=== PATIENT | male | born 1955 | race Caucasian/White ===

== ENCOUNTER 2019-07-14 17:16 | Observation (INO) | payer SELFPAY ==
--- NOTE | 2019-07-14 17:33 | ER Document Report ---
ED Medical Screen (RME) - General Stated Complaint: ABNORMAL LABS Time Seen by Provider: 07/14/19 17:24 Primary Care Provider: SENA GAMBOA MD [Primary Care Provider] - Follow up as needed Information source: Patient Notes: Patient presents after having outpatient lab work performed that found a hemoglobin of 4.9. Patient states that he does have dizziness and does have shortness of breath that is worse with exertion. Patient denies any abnormal bleeding or bruising. Patient does report black stools but attributes this to his vegetable intake. Patient reports a history of diabetes. I have greeted and performed a rapid initial assessment of this patient. A comprehensive ED assessment and evaluation of the patient, analysis of test results and completion of the medical decision making process will be conducted by additional ED providers. Physical Exam - Vital signs Vitals: Temp Pulse Resp BP Pulse Ox 98.9 F 81 16 160/57 H 100 07/14/19 17:20 07/14/19 17:20 07/14/19 17:20 07/14/19 17:20 07/14/19 17:20 - General General appearance: Appears well, Alert Notes: Pale - Cardiovascular Rhythm: Regular Heart sounds: S1 appreciated, S2 appreciated Course - Vital Signs Vital signs: Temp Pulse Resp BP Pulse Ox 98.9 F 81 16 160/57 H 100 07/14/19 17:20 07/14/19 17:20 07/14/19 17:20 07/14/19 17:20 07/14/19 17:20 Doctor's Discharge - Discharge Referrals: SENA GAMBOA MD [Primary Care Provider] - Follow up as needed
--- NOTE | 2019-07-14 18:15 | RADIOLOGY REPORT (SQ) ---
EXAM DESCRIPTION: CHEST SINGLE VIEW IMAGES COMPLETED DATE/TIME: 07/14/2019 6:02 pm REASON FOR STUDY: dizziness COMPARISON: None. EXAM PARAMETERS: NUMBER OF VIEWS: One view. TECHNIQUE: Single frontal radiographic view of the chest acquired. RADIATION DOSE: NA LIMITATIONS: None. FINDINGS: LUNGS AND PLEURA: Bibasilar minimal scar or atelectasis. No acute pulmonary consolidatio n. No pneumothorax or pleural effusion. MEDIASTINUM AND HILAR STRUCTURES: No masses. Contour normal. HEART AND VASCULAR STRUCTURES: Heart normal in size. Normal vasculature. BONES: No acute findings. HARDWARE: None in the chest. OTHER: No other significant finding. IMPRESSION: 1. NO ACUTE RADIOGRAPHIC FINDING IN THE CHEST. TECHNICAL DOCUMENTATION: JOB ID: [id number] 2010 [employer]- All Rights Reserved Reading location - IP/workstation name: [email or web address]
[2019-07-14] MEDS ORDERED: NORMAL SALINE 250 ML IV PRN ×3 (18:46→22:14)
--- NOTE | 2019-07-14 19:25 | ER Document Report ---
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 Patient states that he is to be heavy drinker and quit since last summer but since then has noticed exercise intolerance, dyspnea on exertion. Over the last 4 months has had pain in his chest going up to his esophagus when he lies down to sleep at night for which he took some unknown antacid approximately 3 weeks ago and relieved his symptoms. Went to PCP yesterday for the symptoms which have not acutely changed and had lab work done that showed hemoglobin of 4.9 with MCV of 53 and a glucose of 353. Patient states that he has not had any chest pain or abdominal pain for the past 3 weeks. Patient denies any acute change in his cou gh, exertional chest pain, dizziness/syncope, melena, bright red blood per rectum, hematuria, unexplained weight loss, prior anemia diagnosis, prior transfusion, cardiac history, prior endoscopy/colonoscopy, drug use, smoking history, active alcohol use, PUD history, GI bleed history, family history. - Related Data Allergies/Adverse Reactions: lactose Allergy (Intermediate, Verified 07/14/19 20:25) Diarrhea Past Medical History - General Information source: Patient - Social History Smoking Status: Never Smoker Chew tobacco use (# tins/day): No Frequency of alcohol use: stopped 2018 Drug Abuse: None Family History: Reviewed & Not Pertinent Patient has suicidal ideation: No Patient has homicidal ideation: No Pulmonary Medical History: Reports: Hx Asthma Review of Systems - Review of Systems Notes: REVIEW OF SYSTEMS: CONSTITUTIONAL : Denies fever, chills, or sweats. EENT: Denies recent cold/sinus symptoms, denies throat pain CARDIOVASCULAR: +chest pain, CEE RESPIRATORY: Denies cough, denies shortness of breath. GASTROINTESTINAL: Denies abdominal pain, nausea/vomiting. GENITOURINARY: Denies difficulty urinating, painful urination. MUSCULOSKELETAL: Denies neck pain, back pain. SKIN: Denies rash or skin lesions. HEMATOLOGIC : Denies easy bruising or bleeding. LYMPHATIC: Denies swollen, enlarged glands. NEUROLOGICAL: Denies headache, denies change in gait. PSYCHIATRIC: Denies anxiety or stress or depression. Physical Exam - Vital signs Vitals: Temp Pulse Resp BP Pulse Ox 98.9 F 81 16 160/57 H 100 07/14/19 17:20 07/14/19 17:20 07/14/19 17:20 07/14/19 17:20 07/14/19 17:20 - Notes Notes: PHYSICAL EXAMINATION: GENERAL: Well-appearing, well-nourished, talkative, cheerful appearing, and in no acute distress. HEAD: Atraumatic, normocephalic. EYES: Pupils equal round and appropriate constriction, sclera anicteric, conjunctiva pale. ENT: nares patent, moist mucous membranes. NECK: Normal range of motion, supple without lymphadenopathy LUNGS: Breath sounds clear to auscultation bilaterally and equal. No wheezes rales or rhonchi. HEART: Regular rate and rhythm without murmurs ABDOMEN: Soft, nontender, no guarding, no masses, no CVAT. guaiac negative brown stool on rectal. EXTREMITIES: Normal range of motion, no pitting or edema. No cyanosis. NEUROLOGICAL: Awake, alert, conversing appropriately, moves all extremities spontaneously. PSYCH: Normal mood, normal affect. SKIN: Warm, Dry, normal turgor, no rashes or lesions noted. Course - Re-evaluation Re-evalutation: 07/14/19 19:25 63-year-old with severe anemia previously undiagnosed. Patient otherwise stable in ED, hypertensive with no history of hypertension as per patient, patient in formed of need to follow-up. Most likely very chronic given MCV markedly low. Also presenting with new hyperglycemia, but with no signs of DKA, will assess anion gap on BMP. Plan: EKG, chest x-ray, troponin, BMP, iron studies, coags, type and screen, transfuse, admit for further work-up. 07/14/19 21:19 No other emergent findings found on ED work-up other than significant anemia relatively stable from PCPs office. Guaiac negative. Patient discussed with Dr. Walter and admitted to observation telemetry for blood administration and to begin anemia work-up. - Vital Signs Vital signs: Temp Pulse Resp BP Pulse Ox 98.4 F 86 23 H 158/61 H 100 07/14/19 21:51 07/14/19 17:38 07/14/19 20:01 07/14/19 20:01 07/14/19 20:01 - Laboratory Result Diagrams: 07/14/19 18:52 07/14/19 18:52 Laboratory results interpreted by me: 07/14/19 07/14/19 07/14/19 18:38 18:52 18:52 RBC 3.66 L Hgb 4.7 L* Hct 16.8 L MCV < 50 L* MCH 12.7 L MCHC 27.7 L RDW 27.6 H Sodium 131.1 L BUN 21 H Glucose 137 H Iron 23.7 L TIBC 516 H Ferritin 4.28 L Alkaline Phosphatase 156 H Urine Glucose (UA) 150 H Urine Blood SMALL H Crossmatch 07/14/19 18:52 RBC Hgb Hct MCV MCH MCHC RDW Sodium BUN Glucose Iron TIBC Ferritin Alkaline Phosphatase Urine Glucose (UA) Urine Blood Crossmatch See Detail - EKG Interpretation by Me Additional EKG results interpreted by me: 07/14/19 22:04 Sinus rhythm, regular rate, heart rate 70, QTc 432, no significant ST elevations or depressions, J-point elevation present without any reciprocal depressions o correlating signs of ischemia Discharge - Discharge Clinical Impression: Anemia Qualifiers: Anemia type: unspecified type Qualified Code(s): D64.9 - Anemia, unspecified Condition: Good Disposition: ADMITTED OBSERVATION Admitting Provider: Jose Angel (Hospitalist) Unit Admitted: Telemetry
[2019-07-14 19:40] LABS: INTERNATIONAL RATION (INR) 1.01; PROTHROMBIN TIME 13.3 SEC (11.4-15.4)
[2019-07-14 19:40] LABS: APPEARANCE,URINE CLEAR; BILIRUBIN,URINE NEGATIVE (NEGATIVE); COLOR,URINE STRAW; GLUCOSE, URINE 150 mg/dL (NEGATIVE); KETONES,URINE NEGATIVE (NEGATIVE); LEUKOCYTE ESTERASE,URINE NEGATIVE (NEGATIVE); NITRITE,URINE NEGATIVE (NEGATIVE); PROTEIN,URINE NEGATIVE (NEGATIVE); URINE SPECIFIC GRAVITY 1.005; UROBILINOGEN,URINE NEGATIVE mg/dL (<2.0)
[2019-07-14 19:41] LABS: PARTIAL THROMBOPLASTIN TIME 25.1 SEC (23.5-35.8)
[2019-07-14 19:42] LABS: ABSOLUTE RETICS # 0.105 10^6/uL (0.028-0.122); HEMATOCRIT 16.8 % (37.9-51.0); MEAN CORPUSCULAR HEMOGLOBIN 12.7 pg (27.0-33.4); MEAN CORPUSCULAR HGB CONC 27.7 g/dL (32.0-36.0); PLATELET COUNT 296 10^3/uL (150-450); RED BLOOD COUNT 3.66 10^6/uL (4.35-5.55); RED CELL DISTRIBUTION WIDTH 27.6 % (11.5-14.0); RETICULOCYTE COUNT (AUTO) 2.85 % (0.66-2.85); WHITE BLOOD COUNT 10.1 10^3/uL (4.0-10.5)
[2019-07-14 19:59] LABS: ALKALINE PHOSPHATASE 156 U/L (38-126); ANION GAP 8 (5-19); ASPARTATE AMINO TRANSFERASE 24 U/L (17-59); BILIRUBIN,TOTAL 0.8 mg/dL (0.2-1.3); BLOOD UREA NITROGEN 21 mg/dL (7-20); CALCIUM 8.6 mg/dL (8.4-10.2); CARBON DIOXIDE 25 mmol/L (22-30); CHLORIDE 98 mmol/L (98-107); GLUCOSE 137 mg/dL (75-110); IRON(TIBC) 23.7 ug/dL (49-181); POTASSIUM 4.1 mmol/L (3.6-5.0); TOTAL PROTEIN 8.1 g/dL (6.3-8.2)
[2019-07-14 20:24] LABS: ABSOLUTE LYMPHOCYTES# (MANUAL) 2.3 10^3/uL (0.5-4.7); ABSOLUTE MONOCYTES # (MANUAL) 0.3 10^3/uL (0.1-1.4); BASOPHILS % (MANUAL) 2 % (0-2); EOSINOPHILS % (MANUAL) 2 % (0-6); LYMPHOCYTES % (MANUAL) 23 % (13-45); MONOCYTES % (MANUAL) 3 % (3-13); NUCLEATED RED BLOOD CELLS 1 /100 WBC (0); SEGMENTED NEUTROPHILS % (MAN) 70 % (42-78); TOTAL CELLS COUNTED 100
[2019-07-14 20:26] LABS: ANISOCYTOSIS 4+; HYPOCHROMASIA 4+
[2019-07-14 20:27] LABS: POLYCHROMASIA 1+
[2019-07-14 20:31] LABS: OVALOCYTES 1+; PLATELET COMMENT ADEQUATE; STOMATOCYTES 1+
[2019-07-14 20:33] LABS: SCHISTOCYTES 1+
[2019-07-14 20:34] LABS: FERRITIN 4.28 ng/mL (17.9-464.0)
[2019-07-14 20:49] LABS: HEMOGLOBIN 4.7 g/dL (13.5-17.0)
[2019-07-14 20:50] LABS: MEAN CORPUSCULAR VOLUME < 50 fl (80-97)
--- NOTE | 2019-07-14 21:40 | PDOC H&P ---
History of Present Illness Admission Date/PCP: 07/14/2019 21:24 SENA GAMBOA MD Patient complains of: Abnormal lab tests History of Present Illness: RACHANA GARCIA is a 63 year old male who presented to the emergency room due to abnormal lab tests. Patient admits that he was seen at a local clinic yesterday for follow-up of his chronic nocturnal reflux esophagitis and routine lab work w as obtained. He was called by the primary care office today informing him his hemoglobin was 4.9 and he needed to come to the emergency room for treatment. He denies any associated or accompanying signs and symptoms related to his anemia. His nocturnal reflux esophagitis improved/resolved with the antiacid therapy recommended by his primary care provider 3 weeks ago. He admits a history of alcohol abuse in the past but has not used alcohol for the last 8 months. He denies prior similar episodes. He has not identified any aggravating or ameliorating factors for his abnormal lab work. In the emergency room he was found to have a hemoglobin of 4.7 and was subsequently admitted, on observation status, to the hospital for further evaluation and treatment as well as to receive a transfusion of 3 units of packed red blood cells and to allow for further evaluation and treatment. Past Medical History Cardiac Medical History: Denies: Atrial Fibrillation, Coronary Artery Disease, DVT, Hyperlipidema, Hypertension, Pulmonary Embolism Pulmonary Medical History: Reports: Asthma Denies: Chronic Obstructive Pulmonary Disease (COPD) EENT Medical History: Denies: Cataracts, Ears - Hearing aids Neurological Medical History: Denies: Hemorrhagic CVA, Ischemic CVA, Seizures Endocrine Medical History: Denies: Diabetes Mellitus Type 1, Diabetes Mellitus Type 2, Hyperthyroidism, Hypothyroidism, Obesity Renal/ Medical History: Denies: Chronic Kidney Disease, Nephrolithiasis Malignancy Medical History: Reports: None GI Medical History: Reports: Gastroesophageal Reflux Disease, Other - Lactose intolerance Denies: Cirrhosis, Crohn's Disease, Hepatitis, Peptic Ulcer Disease, Ulcerative Colitis Musculoskeltal Medical History: Denies: Arthritis, Gout Skin Medical History: Denies: Eczema, Psoriasis Psychiatric Medical History: Reports: Alcohol Dependency Denies: Substance Abuse, Tobacco Dependency Traumatic Medical History: Reports: Other - [id number], lost distal phalanx of the L 1st toe, jaw fx Hematology: Denies: Anemia, Bleeding Tendencies Infectious Medical History: Reports: None Past Surgical History Past Surgical History: Reports: Other - Operative repair of fractured jaw Social History Information Source: Patient Lives with: Spouse/Significant other Smoking Status: Never Smoker Electronic Cigarette use?: No Frequency of Alcohol Use: None - History of heavy alcohol abuse in the past. No alcohol use for the last 8 months Hx Recreational Drug Use: No Drugs: None Hx Prescription Drug Abuse: No - Advance Directive Resuscitation Status: Full Code Surrogate healthcare decision maker:: Daisy Garcia Family History Family History: DM - Older brother. denies: CAD, Hypertension, Malignancy Parental Family History Reviewed: Yes Children Family History Reviewed: No Sibling(s) Family History Reviewed.: Yes Medication/Allergy Allergies/Adverse Reactions: lactose Allergy (Intermediate, Verified 07/14/19 20:25) Diarrhea Review of Systems Constitutional: ABSENT: chills, fever(s) Eyes: ABSENT: visual disturbances, other - Eye pain Ears: ABSENT: hearing changes, other - Ear pain Nose, Mouth, and Throat: ABSENT: headache(s), sore throat Cardiovascular: ABSENT: chest pain, palpitations Respiratory: ABSENT: cough, dyspnea Gastrointestinal: ABSENT: abdominal pain, constipation, diarrhea, melena, nausea, vomiting Genitourinary: ABSENT: dysuria, hematuria Musculoskeletal: ABSENT: back pain, joint swelling Integumentary: ABSENT: pruritus, rash Neurological: ABSENT: confusion, convulsions, focal weakness, memory loss, syncope Psychiatric: ABSENT: anxiety, depression Endocrine: ABSENT: cold intolerance, heat intolerance, polydipsia, polyphagia, polyuria Hematologic/Lymphatic: ABSENT: easy bleeding, easy bruising Allergic/Immunologic: ABSENT: seasonal rhinorrhea Physical Exam Vital Signs: Temp Pulse Resp BP Pulse Ox 98.6 F 86 23 H 158/61 H 100 07/14/19 19:32 07/14/19 17:38 07/14/19 20:01 07/14/19 20:01 07/14/19 20:01 Intake & Output 07/12/19 07/13/19 07/14/19 23:59 23:59 23:59 Output Total 500 Balance -500 Weight 70.4 kg General appearance: PRESENT: no acute distress, cooperative, well-developed Head exam: PRESENT: atraumatic, normocephalic Eye exam: PRESENT: conjunctiva pale. ABSENT: conjunctival injection, scleral icterus Ear exam: PRESENT: normal external ear exam. ABSENT: bleeding, drainage Mouth exam: PRESENT: dry mucosa, neck supple Neck exam: ABSENT: thyromegaly, tracheal deviation Respiratory exam: PRESENT: clear to auscultation julianne, symmetrical, unlabored Cardiovascular exam: PRESENT: RRR. ABSENT: clicks, gallop, rubs Pulses: PRESENT: normal radial pulses, normal dorsalis pedis pul Vascular exam: PRESENT: normal capillary refill. ABSENT: pallor GI/Abdominal exam: PRESENT: normal bowel sounds, soft. ABSENT: tenderness Rectal exam: PRESENT: deferred Extremities exam: ABSENT: joint swelling, pedal edema Musculoskeletal exam: ABSENT: deformity, dislocation Neurological exam: PRESENT: alert, oriented to person, oriented to place, oriented to time, oriented to situation, CN II-XII grossly intact. ABSENT: motor sensory deficit Psychiatric exam: PRESENT: appropriate affect, normal mood Skin exam: PRESENT: dry, intact, warm. ABSENT: jaundice, rash, urticaria Results Laboratory Results: 07/14/19 18:52 07/14/19 18:52 07/14/19 07/14/19 07/14/19 18:38 18:52 18:52 WBC 10.1 RBC 3.66 L Hgb 4.7 L* Hct 16.8 L MCV < 50 L* MCH 12.7 L MCHC 27.7 L RDW 27.6 H Plt Count 296 Seg Neutrophils % Not Reportable Retic Count (auto) 2.85 Sodium 131.1 L Potassium 4.1 Chloride 98 Carbon Dioxide 25 Anion Gap 8 BUN 21 H Creatinine 0.88 Est GFR ( Amer) > 60 Glucose 137 H Calcium 8.6 Magnesium 2.0 Iron 23.7 L TIBC 516 H % Saturation 5 Ferritin 4.28 L Total Bilirubin 0.8 AST 24 Alkaline Phosphatase 156 H Total Protein 8.1 Albumin 4.0 Vitamin B12 802.0 Folate 15.40 Urine Color STRAW Urine Appearance CLEAR Urine pH 6.0 Ur Specific [place] 1.005 Urine Protein NEGATIVE Urine Glucose (UA) 150 H Urine Ketones NEGATIVE Urine Blood SMALL H Urine Nitrite NEGATIVE Ur Leukocyte Esterase NEGATIVE Urine WBC (Auto) 1 Urine RBC (Auto) 0 Blood Type Antibody Screen 07/14/19 18:52 WBC RBC Hgb Hct MCV MCH MCHC RDW Plt Count Seg Neutrophils % Retic Count (auto) Sodium Potassium Chloride Carbon Dioxide Anion Gap BUN Creatinine Est GFR ( Amer) Glucose Calcium Magnesium Iron TIBC % Saturation Ferritin Total Bilirubin AST Alkaline Phosphatase Total Protein Albumin Vitamin B12 Folate Urine Color Urine Appearance Urine pH Ur Specific [place] Urine Protein Urine Glucose (UA) Urine Ketones Urine Blood Urine Nitrite Ur Leukocyte Esterase Urine WBC (Auto) Urine RBC (Auto) Blood Type O POSITIVE Antibody Screen NEGATIVE 07/14/19 18:52 Troponin I 0.025 Impressions: Chest X-Ray 07/14/19 17:32 IMPRESSION: 1. NO ACUTE RADIOGRAPHIC FINDING IN THE CHEST. Assessment and Plan - Diagnosis (1) Hypochromic microcytic anemia Is this a current diagnosis for this admission?: Yes (2) Gastroesophageal reflux disease with esophagitis Is this a current diagnosis for this admission?: Yes (3) Hyponatremia Is this a current diagnosis for this admission?: Yes (4) Elevated blood sugar Is this a current diagnosis for this admission?: Yes (5) Elevated blood pressure reading Is this a current diagnosis for this admission?: Yes - Plan Summary Summary: Patient will be admitted to telemetry where he will receive routine symptomatic and supportive cares. He will receive 3 units of packed red blood cells per transfusion. Hematology consultation will be obtained with Dr. Avery. Routine anemia studies will be performed. He will use morphine sulfate 2 to 4 mg IV every 2 hours as needed for pain. A gastroenterology consultation will be obtained with Dr. Lockett. He will be started on oral iron supplementation with ferrous sulfate 325 mg p.o. daily. He will also be started on therapy for his esophageal reflux disease with Protonix 40 mg p.o. twice daily. A CBC, metabol ic profile and magnesium level be obtained in the morning. After patient finishes his transfusions and has been initially evaluated by the consultants he should be able to be discharged to follow-up on outpatient basis for further evaluation and treatment. - Time Time Spent with patient: 15-24 minutes Medications reviewed and adjusted accordingly: Yes Anticipated discharge: Home Within: within 48 hours - Inpatient Certification Based on my medical assessment, after consideration of the patient's comorbidities, presenting symptoms, or acuity I expect that the services needed warrant INPATIENT care.: No I certify that my determination is in accordance with my understanding of Medicare's requirements for reasonable and necessary INPATIENT services [42 CFR 412.3e].: No Medical Necessity: Need For IV Fluids, Other - Need for blood transfusions
[2019-07-14] MEDS ORDERED: MAGNESIUM HYDROXIDE SUSP 30 ML UDCUP PO PRN (22:03)
[2019-07-14] MEDS ORDERED: NORMAL SALINE 1000 ML 1,000 ML IV PRN (22:03)
[2019-07-14] MEDS ORDERED: MAG HYDROX/AL HYDROX/SIMETH SUSP 30 ML UDCUP PO PRN (22:03)
[2019-07-14] MEDS ORDERED: HYDRALAZINE HCL INJ/PF 20 MG/1 ML SDV IV PRN (22:10)
[2019-07-14] MEDS ORDERED: ACETAMINOPHEN 325 MG TABLET PO PRN ×2 (22:10→22:14)
[2019-07-14] MEDS ORDERED: MORPHINE SULFATE 10 MG/ML INJ IV PRN ×3 (22:10)
[2019-07-14] MEDS ORDERED: DIPHENHYDRAMINE HCL 25 MG CAPSULE PO PRN (22:14)
[2019-07-14] MEDS ORDERED: FUROSEMIDE INJ/PF 20 MG/2 ML SDV IV PRN (22:14)
--- NOTE | 2019-07-14 23:04 | PDOC CONSULTATION ---
Consultation Consult Date: 07/14/19 Provider Consulted: KAPIL GAGNON Consult reason:: chronic anemia, heme negative History of Present Illness Admission Date/PCP: 07/14/19 21:43 History of Present Illness: RACHANA WINN is a 63 year old male patient admitted thru the ED, wit fatigue and noted to have Hgb of 4.7 however per ED records noted to be heme negative does not admit to any previous GI bleeding there is no melena denies any hematemesis GI work up requested patient has fatigue he will probably need admission with blood transfusion at some point will need GI work up to exclude possible GI blood loss although currently there are no active signs of active bleeding patient has normal INR Past Medical History Cardiac Medical History: Denies: Atrial Fibrillation, Coronary Artery Disease, DVT, Hyperlipidema, Hypertension, Pulmonary Embolism Pulmonary Medical History: Reports: Asthma Denies: Chronic Obstructive Pulmonary Disease (COPD) EENT Medical History: Denies: Cataracts, Ears - Hearing aids Neurological Medical History: Denies: Hemorrhagic CVA, Ischemic CVA, Seizures Endocrine Medical History: Denies: Diabetes Mellitus Type 1, Diabetes Mellitus Type 2, Hyperthyroidism, Hypothyroidism, Obesity Renal/ Medical History: Denies: Chronic Kidney Disease, Nephrolithiasis Malignancy Medical History: Reports: None GI Medical History: Reports: Gastroesophageal Reflux Disease, Other - Lactose intolerance Denies: Cirrhosis, Crohn's Disease, Hepatitis, Peptic Ulcer Disease, Ulcerative Colitis Musculoskeltal Medical History: Denies: Arthritis, Gout Skin Medical History: Denies: Eczema, Psoriasis Psychiatric Medical History: Reports: Alcohol Dependency Denies: Substance Abuse, Tobacco Dependency Traumatic Medical History: Reports: None Hematology: Denies: Anemia, Bleeding Tendencies Infectious Medical History: Reports: None Past Surgical History Past Surgical History: Reports: None Social History Lives with: Spouse/Significant other Smoking Status: Never Smoker Electronic Cigarette use?: No Frequency of Alcohol Use: None - History of heavy alcohol abuse in the past. No alcohol use for the last 8 months Hx Recreational Drug Use: No Drugs: None Hx Prescription Drug Abuse: No - Advance Directive Resuscitation Status: Full Code Family History Family History: denies: CAD, DM, Hypertension, Malignancy Parental Family History Reviewed: Yes Children Family History Reviewed: Unknown Sibling(s) Family History Reviewed.: Unknown Medication/Allergy Allergies/Adverse Reactions: lactose Allergy (Intermediate, Verified 07/14/19 20:25) Diarrhea Review of Systems Constitutional: PRESENT: weakness. ABSENT: fever(s), headache(s), night sweats Eyes: ABSENT: visual disturbances Ears: ABSENT: hearing changes Nose, Mouth, and Throat: ABSENT: mouth pain Cardiovascular: ABSENT: edema, orthropnea Respiratory: ABSENT: dyspnea, hemoptysis Gastrointestinal: ABSENT: dysphagia, hematemesis, hematochezia Genitourinary: ABSENT: dysuria, hematuria Integumentary: ABSENT: lesions, pruritus Neurological: ABSENT: syncope, tingling, tremor(s), vertigo Endocrine: ABSENT: polydipsia, polyphagia, polyuria Hematologic/Lymphatic: ABSENT: easy bruising, lymphadenopathy Physical Exam Vital Signs: Temp Pulse Resp BP Pulse Ox 98.9 F 68 18 153/76 H 100 07/14/19 22:19 07/14/19 22:19 07/14/19 22:19 07/14/19 22:19 07/14/19 22:19 Intake & Output 07/13/19 07/14/19 07/15/19 06:59 06:59 06:59 Intake Total 0 Output Total 500 Balance -500 Weight 70.4 kg General appearance: PRESENT: mild distress, well-developed, well-nourished Head exam: PRESENT: atraumatic, normocephalic Eye exam: PRESENT: EOMI, nystagmus, PERRLA, scleral icterus Mouth exam: ABSENT: moist, neck supple Throat exam: ABSENT: tonsillogmegaly Neck exam: ABSENT: meningismus, tenderness, thyromegaly Respiratory exam: PRESENT: symmetrical, unlabored Cardiovascular exam: PRESENT: RRR, +S1, +S2 GI/Abdominal exam: PRESENT: Resendiz's sign, normal bowel sounds. ABSENT: rebound, rigid, soft, tenderness Extremities exam: ABSENT: joint swelling Musculoskeletal exam: PRESENT: full ROM Neurological exam: PRESENT: alert, awake, CN II-XII grossly intact Psychiatric exam: PRESENT: appropriate affect Skin exam: ABSENT: mottled, normal color, pallor, urticaria, vesicles Results Laboratory Results: 07/14/19 18:52 07/14/19 18:52 07/14/19 07/14/19 07/14/19 18:38 18:52 18:52 WBC 10.1 RBC 3.66 L Hgb 4.7 L* Hct 16.8 L MCV < 50 L* MCH 12.7 L MCHC 27.7 L RDW 27.6 H Plt Count 296 Seg Neutrophils % Not Reportable Retic Count (auto) 2.85 Sodium 131.1 L Potassium 4.1 Chloride 98 Carbon Dioxide 25 Anion Gap 8 BUN 21 H Creatinine 0.88 Est GFR ( Amer) > 60 Glucose 137 H Calcium 8.6 Magnesium 2.0 Iron 23.7 L TIBC 516 H % Saturation 5 Ferritin 4.28 L Total Bilirubin 0.8 AST 24 Alkaline Phosphatase 156 H Total Protein 8.1 Albumin 4.0 Vitamin B12 802.0 Folate 15.40 Urine Color STRAW Urine Appearance CLEAR Urine pH 6.0 Ur Specific [place] 1.005 Urine Protein NEGATIVE Urine Glucose (UA) 150 H Urine Ketones NEGATIVE Urine Blood SMALL H Urine Nitrite NEGATIVE Ur Leukocyte Esterase NEGATIVE Urine WBC (Auto) 1 Urine RBC (Auto) 0 Blood Type Antibody Screen 07/14/19 18:52 WBC RBC Hgb Hct MCV MCH MCHC RDW Plt Count Seg Neutrophils % Retic Count (auto) Sodium Potassium Chloride Carbon Dioxide Anion Gap BUN Creatinine Est GFR ( Amer) Glucose Calcium Magnesium Iron TIBC % Saturation Ferritin Total Bilirubin AST Alkaline Phosphatase Total Protein Albumin Vitamin B12 Folate Urine Color Urine Appearance Urine pH Ur Specific [place] Urine Protein Urine Glucose (UA) Urine Ketones Urine Blood Urine Nitrite Ur Leukocyte Esterase Urine WBC (Auto) Urine RBC (Auto) Blood Type O POSITIVE Antibody Screen NEGATIVE 07/14/19 18:52 Troponin I 0.025 Impressions: Chest X-Ray 07/14/19 17:32 IMPRESSION: 1. NO ACUTE RADIOGRAPHIC FINDING IN THE CHEST. Assessment & Plan - Diagnosis (1) Anemia Qualifiers: Anemia type: unspecified type Qualified Code(s): D64.9 - Anemia, unspecified Plan: will need a hematologic work up first , check iron studies to determine if there is iron deficiency there does not appear to have any overt GI bleeding especially without a history and with patient being heme negative transfuse if needed if there is iron deficiency , then most probably GI bleeding and will have hi gher yield with GI exam (2) Gastroesophageal reflux disease with esophagitis Is this a current diagnosis for this admission?: Yes Plan: not a reason for anemia unless coupled with epigastric pain that would imply probable PUD start PPI as needed as noted , other studies needed prior to having GI work up done that would require both EGD and colonoscopy if we are thinking that it is due to blood loss - Time Time Spent: 50 to 70 Minutes
[2019-07-15] MEDS: HEPARIN SOD (PORCINE) 5,000 UNIT/ML 1 ML VIAL SUBCUT SCH ×3 (05:55→21:05)
[2019-07-15] MEDS: PANTOPRAZOLE SODIUM 40 MG TABLET.DR PO SCH ×2 (05:55→17:27)
--- NOTE | 2019-07-15 07:47 | EKG REPORT ---
SEVERITY:- BORDERLINE ECG - SINUS RHYTHM IVCD EARLY PRECORDIAL TRANSITION ? ETIOLOGY : Confirmed by: Naveen Parkinson MD 15-Jul-2019 07:47:00
--- NOTE | 2019-07-15 08:31 | PDOC PROGRESS REPORT ---
Subjective Progress Note for:: 07/15/19 Subjective:: Chart Review completed as per COVID restrictions we are not currently seeing pts face to face. Pt does have severe iron deficiency anemia, although there is no documented history of bleeding/hemocult negative, blood loss anemia from GI tract must be ruled out. Would recommend GI w/u as next step, but if pt deemed stable and not actively bleeding per hospitalist and GI team, could be done at later date as outpt. Will give IV iron today and order another dose in 48 hours if pt still admitted. He received 3 units PRBC and will need repeat HB to be checked post transfusion. We can see as oupt but we are not currently seeing new pts until mid July 31 COVID restrictions. He should f/u with his PCP for just a CBC in 1-2 weeks. Will follow peripherally while admitted. Reason For Visit: HYPOCHROMIC MICROCYTIC ANEMIA,GERD Physical Exam Vital Signs: Temp Pulse Resp BP Pulse Ox 97.9 F 71 16 148/74 H 100 07/15/19 07:30 07/15/19 07:30 07/15/19 07:30 07/15/19 07:30 07/15/19 07:30 Intake & Output 07/14/19 07/15/19 07/16/19 06:59 06:59 06:59 Intake Total 0 0 Output Total 500 Balance -500 0 Weight 70.4 kg Results Laboratory Results: 07/14/19 18:52 07/14/19 18:52 07/14/19 07/14/19 07/14/19 18:38 18:52 18:52 WBC 10.1 RBC 3.66 L Hgb 4.7 L* Hct 16.8 L MCV < 50 L* MCH 12.7 L MCHC 27.7 L RDW 27.6 H Plt Count 296 Seg Neutrophils % Not Reportable Retic Count (auto) 2.85 Sodium 131.1 L Potassium 4.1 Chloride 98 Carbon Dioxide 25 Anion Gap 8 BUN 21 H Creatinine 0.88 Est GFR ( Amer) > 60 Glucose 137 H Calcium 8.6 Magnesium 2.0 Iron 23.7 L TIBC 516 H % Saturation 5 Ferritin 4.28 L Total Bilirubin 0.8 AST 24 Alkaline Phosphatase 156 H Total Protein 8.1 Albumin 4.0 Vitamin B12 802.0 Folate 15.40 Urine Color STRAW Urine Appearance CLEAR Urine pH 6.0 Ur Specific [place] 1.005 Urine Protein NEGATIVE Urine Glucose (UA) 150 H Urine Ketones NEGATIVE Urine Blood SMALL H Urine Nitrite NEGATIVE Ur Leukocyte Esterase NEGATIVE Urine WBC (Auto) 1 Urine RBC (Auto) 0 Blood Type Antibody Screen 07/14/19 18:52 WBC RBC Hgb Hct MCV MCH MCHC RDW Plt Count Seg Neutrophils % Retic Count (auto) Sodium Potassium Chloride Carbon Dioxide Anion Gap BUN Creatinine Est GFR ( Amer) Glucose Calcium Magnesium Iron TIBC % Saturation Ferritin Total Bilirubin AST Alkaline Phosphatase Total Protein Albumin Vitamin B12 Folate Urine Color Urine Appearance Urine pH Ur Specific [place] Urine Protein Urine Glucose (UA) Urine Ketones Urine Blood Urine Nitrite Ur Leukocyte Esterase Urine WBC (Auto) Urine RBC (Auto) Blood Type O POSITIVE Antibody Screen NEGATIVE 07/14/19 18:52 Troponin I 0.025 Impressions: Chest X-Ray 07/14/19 17:32 IMPRESSION: 1. NO ACUTE RADIOGRAPHIC FINDING IN THE CHEST. Assessment & Plan - Time Time Spent with patient: 15-24 minutes
--- NOTE | 2019-07-15 08:48 | Progress Note ---
Provider Note Provider Note: Hematology consult noted patient does require a GI work up but without any over symptoms can be done as outpatient will follow up and schedule once [facility] ressumes normal operations
[2019-07-15 09:01] LABS: PATH REVIEW PATHOLOGIST REVIEWED
[2019-07-15] MEDS: FERROUS SULFATE 325 MG TABLET PO SCH (09:39)
[2019-07-15] MEDS: DOCUSATE SODIUM 100 MG CAPSULE PO SCH ×2 (09:40→17:27)
[2019-07-15 09:58] LABS: HEMATOCRIT 29.5 % (37.9-51.0); MEAN CORPUSCULAR HEMOGLOBIN 17.1 pg (27.0-33.4); MEAN CORPUSCULAR HGB CONC 29.6 g/dL (32.0-36.0); WHITE BLOOD COUNT 8.1 10^3/uL (4.0-10.5)
[2019-07-15 10:11] LABS: ANION GAP 6 (5-19); BLOOD UREA NITROGEN 14 mg/dL (7-20); CALCIUM 8.5 mg/dL (8.4-10.2); CARBON DIOXIDE 27 mmol/L (22-30); CHLORIDE 100 mmol/L (98-107); GLUCOSE 248 mg/dL (75-110); POTASSIUM 4.4 mmol/L (3.6-5.0)
[2019-07-15 10:26] LABS: HEMOGLOBIN 8.7 g/dL (13.5-17.0); RED CELL DISTRIBUTION WIDTH 43.5 % (11.5-14.0)
[2019-07-15 10:27] LABS: MEAN CORPUSCULAR VOLUME 58 fl (80-97); PLATELET COUNT 244 10^3/uL (150-450)
[2019-07-15] MEDS ORDERED: FERUMOXYTOL (ESRD) 510 MG/NS 100 ML IV SCH ×2 (11:00)
--- NOTE | 2019-07-15 18:09 | PDOC PROGRESS REPORT ---
Subjective Progress Note for:: 07/15/19 Subjective:: No adverse events overnight. No new complaints. Vital signs been stable. He was eating and drinking without difficulty and is feeling a lot better today after getting some blood and a couple of meals. Reason For Visit: HYPOCHROMIC MICROCYTIC ANEMIA,GERD Physical Exam Vital Signs: Temp Pulse Resp BP Pulse Ox 98.7 F 66 18 144/71 H 100 07/15/19 15:15 07/15/19 15:15 07/15/19 15:15 07/15/19 15:15 07/15/19 15:15 Intake & Output 07/14/19 07/15/19 07/16/19 06:59 06:59 06:59 Intake Total 0 1180 Output Total 500 Balance -500 1180 Weight 70.4 kg General appearance: PRESENT: no acute distress, cooperative, disheveled Respiratory exam: PRESENT: clear to auscultation julianne, symmetrical, unlabored. ABSENT: accessory muscle use, chest wall tenderness, crackles, prolonged expirat ory phas, retraction, rhonchi, tachypnea, wheezes Cardiovascular exam: PRESENT: RRR, +S1, +S2 Pulses: PRESENT: normal carotid pulses Vascular exam: PRESENT: normal capillary refill GI/Abdominal exam: PRESENT: normal bowel sounds, soft. ABSENT: distended, guarding, rebound, tenderness Extremities exam: ABSENT: clubbing, pedal edema Musculoskeletal exam: PRESENT: ambulatory, normal inspection. ABSENT: deformity Neurological exam: PRESENT: alert, awake, oriented to person, oriented to place, oriented to situation Psychiatric exam: PRESENT: appropriate affect, normal mood Skin exam: PRESENT: dry, warm Results Laboratory Results: 07/15/19 09:39 07/15/19 09:39 07/14/19 07/14/19 07/14/19 18:38 18:52 18:52 WBC 10.1 RBC 3.66 L Hgb 4.7 L* Hct 16.8 L MCV < 50 L* MCH 12.7 L MCHC 27.7 L RDW 27.6 H Plt Count 296 Seg Neutrophils % Not Reportable Retic Count (auto) 2.85 Sodium 131.1 L Potassium 4.1 Chloride 98 Carbon Dioxide 25 Anion Gap 8 BUN 21 H Creatinine 0.88 Est GFR ( Amer) > 60 Glucose 137 H Calcium 8.6 Magnesium 2.0 Iron 23.7 L TIBC 516 H % Saturation 5 Ferritin 4.28 L Total Bilirubin 0.8 AST 24 Alkaline Phosphatase 156 H Total Protein 8.1 Albumin 4.0 Vitamin B12 802.0 Folate 15.40 TSH Urine Color STRAW Urine Appearance CLEAR Urine pH 6.0 Ur Specific [place] 1.005 Urine Protein NEGATIVE Urine Glucose (UA) 150 H Urine Ketones NEGATIVE Urine Blood SMALL H Urine Nitrite NEGATIVE Ur Leukocyte Esterase NEGATIVE Urine WBC (Auto) 1 Urine RBC (Auto) 0 Blood Type Antibody Screen 07/14/19 07/15/19 07/15/19 18:52 09:39 09:39 WBC 8.1 RBC 5.10 Hgb 8.7 L D Hct 29.5 L MCV 58 L D MCH 17.1 L MCHC 29.6 L RDW 43.5 H Plt Count 244 Seg Neutrophils % Retic Count (auto) Sodium 132.6 L Potassium 4.4 Chloride 100 Carbon Dioxide 27 Anion Gap 6 BUN 14 Creatinine 0.71 Est GFR ( Amer) > 60 Glucose 248 H Calcium 8.5 Magnesium 2.2 Iron TIBC % Saturation Ferritin Total Bilirubin AST Alkaline Phosphatase Total Protein Albumin Vitamin B12 Folate TSH Urine Color Urine Appearance Urine pH Ur Specific [place] Urine Protein Urine Glucose (UA) Urine Ketones Urine Blood Urine Nitrite Ur Leukocyte Esterase Urine WBC (Auto) Urine RBC (Auto) Blood Type O POSITIVE Antibody Screen NEGATIVE 07/15/19 09:39 WBC RBC Hgb Hct MCV MCH MCHC RDW Plt Count Seg Neutrophils % Retic Count (auto) Sodium Potassium Chloride Carbon Dioxide Anion Gap BUN Creatinine Est GFR ( Amer) Glucose Calcium Magnesium Iron TIBC % Saturation Ferritin Total Bilirubin AST Alkaline Phosphatase Total Protein Albumin Vitamin B12 Folate TSH 8.62 H Urine Color Urine Appearance Urine pH Ur Specific [place] Urine Protein Urine Glucose (UA) Urine Ketones Urine Blood Urine Nitrite Ur Leukocyte Esterase Urine WBC (Auto) Urine RBC (Auto) Blood Type Antibody Screen 07/14/19 18:52 Troponin I 0.025 Impressions: Chest X-Ray 07/14/19 17:32 IMPRESSION: 1. NO ACUTE RADIOGRAPHIC FINDING IN THE CHEST. Assessment and Plan - Diagnosis (1) Hypochromic microcytic anemia Is this a current diagnosis for this admission?: Yes Plan: Hemoccult was negative. He said he is not had any alcohol in about 10 months. He said he has been having progressive weakness since April. His iron levels were very low. He will get an endoscopic evaluation as an outpatient. He has been seen by GI and this was the recommendation. He has gotten some packed red cells and his hemoglobin is come up appropriately. He will be getting some IV iron as well and will likely need an iron supplement as an outpatient. If his hemoglobin is stable tomorrow, he can probably be discharged at that point. - Plan Summary Summary: Patient will be admitted to telemetry where he will receive routine symptomatic and supportive cares. He will receive 3 units of packed red blood cells per transfusion. Hematology consultation will be obtained with Dr. Avery. Routine anemia studies will be performed. He will use morphine sulfate 2 to 4 mg IV every 2 hours as needed for pain. A gastroenterology consultation will be o btained with Dr. Lockett. He will be started on oral iron supplementation with ferrous sulfate 325 mg p.o. daily. He will also be started on therapy for his esophageal reflux disease with Protonix 40 mg p.o. twice daily. A CBC, metabolic profile and magnesium level be obtained in the morning. After patient finishes his transfusions and has been initially evaluated by the consultants he should be able to be discharged to follow-up on outpatient basis for further evaluation and treatment. - Time Time Spent with patient: 15-24 minutes
[2019-07-16] MEDS: PANTOPRAZOLE SODIUM 40 MG TABLET.DR PO SCH (05:05)
[2019-07-16] MEDS: HEPARIN SOD (PORCINE) 5,000 UNIT/ML 1 ML VIAL SUBCUT SCH (05:05)
[2019-07-16 09:18] LABS: HEMATOCRIT 29.5 % (37.9-51.0); HEMOGLOBIN 8.7 g/dL (13.5-17.0); MEAN CORPUSCULAR HEMOGLOBIN 16.8 pg (27.0-33.4); MEAN CORPUSCULAR HGB CONC 29.5 g/dL (32.0-36.0); MEAN CORPUSCULAR VOLUME 57 fl (80-97); PLATELET COUNT 243 10^3/uL (150-450); RED BLOOD COUNT 5.18 10^6/uL (4.35-5.55); WHITE BLOOD COUNT 8.5 10^3/uL (4.0-10.5)
[2019-07-16] MEDS: FERROUS SULFATE 325 MG TABLET PO SCH (10:24)
[2019-07-16] MEDS: DOCUSATE SODIUM 100 MG CAPSULE PO SCH (10:24)
[2019-07-16 10:32] LABS: RED CELL DISTRIBUTION WIDTH 43.5 % (11.5-14.0)
[2019-07-16 12:26] VITALS: BP 151/73
--- NOTE | 2019-07-16 15:16 | PDOC DISCHARGE SUMMARY ---
Impression - Admit/DC Date/PCP Admission Date/Primary Care Provider: 07/14/19 21:43 Discharge Date: 07/16/19 - Discharge Diagnosis (1) Hypochromic microcytic anemia Is this a current diagnosis for this admission?: Yes - Assessment Summary: Patient will be admitted to telemetry where he will receive routine symptomatic and supportive cares. He will receive 3 units of packed red blood cells per transfusion. Hematology consultation will be obtained with Dr. Avery. Routine anemia studies will be performed. He will use morphine sulfate 2 to 4 mg IV every 2 hours as needed for pain. A gastroenterology consultation will be obtained with Dr. Lockett. He will be started on oral iron supplementation with ferrous sulfate 325 mg p.o. daily. He will also be started on therapy for his esophageal reflux disease with Protonix 40 mg p.o. twice daily. A CBC, metabolic profile and magnesium level be obtained in the morning. After patient finishes his transfusions and has been initially evaluated by the consultants he should be able to be discharged to follow-up on outpatient basis for further evaluation and treatment. - Additional Information Resuscitation Status: Full Code Discharge Diet: Regular Discharge Activity: Activity As Tolerated Referrals: [facility] [Outside] (CLINIC IS NOT SCHEDULING OFFICE VISITS AT THIS TIME. PATIENT WILL NEED TO CALL CLINIC TO ESTABLISH CARE AND THEN A TELE MED CONFERENCE CALL WILL BE SET UP.) Prescriptions: Ferrous Sulfate [Feosol 325 mg Tablet] 325 mg PO BID #60 tab Omeprazole 20 mg PO BID #60 tab. Home Medications: Ferrous Sulfate [Feosol 325 mg Tablet] 325 mg PO BID #60 tab 07/16/19 Omeprazole 20 mg PO BID #60 tab 07/16/19 History of Present Illiness History of Present Illness: RACHANA WINN is a 63 year old male who presented to the emergency room due to abnormal lab tests. Patient admits that he was seen at a local clinic yesterday for follow-up of his chronic nocturnal reflux esophagitis and routine lab work was obtained. He was called by the primary care office today informing him his hemoglobin was 4.9 and he needed to come to the emergency room for treatment. He denies any associated or accompanying signs and symptoms related to his anemia. His nocturnal reflux esophagitis improved/resolved with the antiacid therapy recommended by his primary care provider 3 weeks ago. He admits a history of alcohol abuse in the past but has not used alcohol for the last 8 months. He denies prior similar episodes. He has not identified any aggravating or ameliorating factors for his abnormal lab work. In the emergency room he was found to have a hemoglobin of 4.7 and was subsequently admitted, on observation status, to the hospital for further evaluation and treatment as well as to receive a transfusion of 3 units of packed red blood cells and to allow for further evaluation and treatment. Hospital Course Hospital Course: His Hemoccult was negative and he was seen by gastroenterology who thought he would be stable for an outpatient work-up. He has been shown no signs of blood loss here. He got some packed red blood cells and some IV iron and his hemoglobin has come up appropriately and has remained stable. He has been eating and drinking without difficulty or abdominal pain. I have recommended that he take a proton pump inhibitor twice a day for several weeks, as well as an iron supplement twice a day for 3 months. His MCV was very very low, and did improve after he got some packed red cells. He was feeling much better after getting some packed red cells. He has outpatient follow-up arranged. His labs and examination are reassuring and he was discharged in stable condition. Physical Exam Vital Signs: Temp Pulse Resp BP Pulse Ox 98.5 F 76 18 148/74 H 99 07/16/19 11:39 07/16/19 11:39 07/16/19 11:39 07/16/19 11:39 07/16/19 11:39 Intake & Output 07/15/19 07/16/19 07/17/19 06:59 06:59 06:59 Intake Total 600 1580 Output Total 500 Balance 100 1580 Weight 70.4 kg 68.2 kg General appearance: PRESENT: no acute distress, cooperative, disheveled Respiratory exam: PRESENT: clear to auscultation julianne, symmetrical, unlabored. ABSENT: accessory muscle use, chest wall tenderness, crackles, prolonged expiratory phas, retraction, rhonchi, tachypnea, wheezes Cardiovascular exam: PRESENT: RRR, +S1, +S2 Pulses: PRESENT: normal carotid pulses Vascular exam: PRESENT: normal capillary refill GI/Abdominal exam: PRESENT: normal bowel sounds, soft. ABSENT: distended, guarding, rebound, tenderness Extremities exam: ABSENT: clubbing, pedal edema Musculoskeletal exam: PRESENT: ambulatory, normal inspection. ABSENT: deformity Neurological exam: PRESENT: alert, awake, oriented to person, oriented to place, oriented to situation Psychiatric exam: PRESENT: appropriate affect, normal mood Skin exam: PRESENT: dry, warm Results Laboratory Results: WBC 8.5 10^3/uL (4.0-10.5) 07/16/19 08:29 RBC 5.18 10^6/uL (4.35-5.55) 07/16/19 08:29 Hgb 8.7 g/dL (13.5-17.0) L 07/16/19 08:29 Hct 29.5 % (37.9-51.0) L 07/16/19 08:29 MCV 57 fl (80-97) L 07/16/19 08:29 MCH 16.8 pg (27.0-33.4) L 07/16/19 08:29 MCHC 29.5 g/dL (32.0-36.0) L 07/16/19 08:29 RDW 43.5 % (11.5-14.0) H 07/16/19 08:29 Plt Count 243 10^3/uL (150-450) 07/16/19 08:29 Lymph % (Auto) Not Reportable 07/14/19 18:52 [place] % (Auto) Not Reportable 07/14/19 18:52 Eos % (Auto) Not Reportable 07/14/19 18:52 Baso % (Auto) Not Reportable 07/14/19 18:52 Reticulocyte # 0.105 10^6/uL (0.028-0.122) 07/14/19 18:52 Absolute Neuts (auto) Not Reportable 07/14/19 18:52 Absolute Lymphs (auto) Not Reportable 07/14/19 18:52 Absolute Monos (auto) Not Reportable 07/14/19 18:52 Absolute Eos (auto) Not Reportable 07/14/19 18:52 Absolute Basos (auto) Not Reportable 07/14/19 18:52 Total Counted 100 07/14/19 18:52 Seg Neutrophils % Not Reportable 07/14/19 18:52 Seg Neuts % (Manual) 70 % (42-78) 07/14/19 18:52 Lymphocytes % (Manual) 23 % (13-45) 07/14/19 18:52 Monocytes % (Manual) 3 % (3-13) 07/14/19 18:52 Eosinophils % (Manual) 2 % (0-6) 07/14/19 18:52 Basophils % (Manual) 2 % (0-2) 07/14/19 18:52 Abs Neuts (Manual) 7.1 10^3/uL (1.7-8.2) 07/14/19 18:52 Abs Lymphs (Manual) 2.3 10^3/uL (0.5-4.7) 07/14/19 18:52 Abs Monocytes (Manual) 0.3 10^3/uL (0.1-1.4) 07/14/19 18:52 Absolute Eos (Manual) 0.2 10^3/uL (0.0-0.6) 07/14/19 18:52 Abs Basophils (Manual) 0.2 10^3/uL (0.0-0.2) 07/14/19 18:52 Nucleated RBCs 1 /100 WBC (0) 07/14/19 18:52 Platelet Comment ADEQUATE 07/14/19 18:52 Polychromasia 1+ 07/14/19 18:52 Hypochromasia 4+ 07/14/19 18:52 Anisocytosis 4+ 07/14/19 18:52 Microcytosis 4+ 07/14/19 18:52 Ovalocytes 1+ 07/14/19 18:52 Stomatocytes 1+ 07/14/19 18:52 Schistocytes 1+ 07/14/19 18:52 Retic Count (auto) 2.85 % (0.66-2.85) 07/14/19 18:52 PT 13.3 SEC (11.4-15.4) 07/14/19 18:52 INR 1.01 07/14/19 18:52 APTT 25.1 SEC (23.5-35.8) 07/14/19 18:52 Sodium 132.6 mmol/L (137-145) L 07/15/19 09:39 Potassium 4.4 mmol/L (3.6-5.0) 07/15/19 09:39 Chloride 100 mmol/L (98-107) 07/15/19 09:39 Carbon Dioxide 27 mmol/L (22-30) 07/15/19 09:39 Anion Gap 6 (5-19) 07/15/19 09:39 BUN 14 mg/dL (7-20) 07/15/19 09:39 Creatinine 0.71 mg/dL (0.52-1.25) 07/15/19 09:39 Est GFR ( Amer) > 60 (>60) 07/15/19 09:39 Est GFR (MDRD) Non-Af > 60 (>60) 07/15/19 09:39 Glucose 248 mg/dL (75-110) H 07/15/19 09:39 Hemoglobin A1c % 7.4 % (4.7-6.0) H 07/15/19 09:39 Calcium 8.5 mg/dL (8.4-10.2) 07/15/19 09:39 Magnesium 2.2 mg/dL (1.6-2.3) 07/15/19 09:39 Iron 23.7 ug/dL (49-181) L 07/14/19 18:52 TIBC 516 ug/dL (250-450) H 07/14/19 18:52 % Saturation 5 % 07/14/19 18:52 Ferritin 4.28 ng/mL (17.9-464.0) L 07/14/19 18:52 Total Bilirubin 0.8 mg/dL (0.2-1.3) 07/14/19 18:52 Direct Bilirubin 0.0 mg/dL (0.0-0.4) 07/14/19 18:52 Neonat Total Bilirubin Not Reportable 07/14/19 18:52 Neonat Direct Bilirubin Not Reportable 07/14/19 18:52 Neonat Indirect Bili Not Reportable 07/14/19 18:52 AST 24 U/L (17-59) 07/14/19 18:52 ALT 15 U/L (<50) 07/14/19 18:52 Alkaline Phosphatase 156 U/L (38-126) H 07/14/19 18:52 Troponin I 0.025 ng/mL 07/14/19 18:52 Total Protein 8.1 g/dL (6.3-8.2) 07/14/19 18:52 Albumin 4.0 g/dL (3.5-5.0) 07/14/19 18:52 Vitamin B12 802.0 pg/mL (239-931) 07/14/19 18:52 Folate 15.40 ng/mL (>2.76) 07/14/19 18:52 TSH 8.62 uIU/mL (0.47-4.68) H 07/15/19 09:39 Urine Color STRAW 07/14/19 18:38 Urine Appearance CLEAR 07/14/19 18:38 Urine pH 6.0 (5.0-9.0) 07/14/19 18:38 Ur Specific [place] 1.005 07/14/19 18:38 Urine Protein NEGATIVE mg/dL (NEGATIVE) 07/14/19 18:38 Urine Glucose (UA) 150 mg/dL (NEGATIVE) H 07/14/19 18:38 Urine Ketones NEGATIVE mg/dL (NEGATIVE) 07/14/19 18:38 Urine Blood SMALL (NEGATIVE) H 07/14/19 18:38 Urine Nitrite NEGATIVE (NEGATIVE) 07/14/19 18:38 Urine Bilirubin NEGATIVE (NEGATIVE) 07/14/19 18:38 Urine Urobilinogen NEGATIVE mg/dL (<2.0) 07/14/19 18:38 Ur Leukocyte Esterase NEGATIVE (NEGATIVE) 07/14/19 18:38 Urine WBC (Auto) 1 /HPF 07/14/19 18:38 Urine RBC (Auto) 0 /HPF 07/14/19 18:38 Squamous Epi Cells Auto <1 /HPF 07/14/19 18:38 Urine Mucus (Auto) RARE /LPF 07/14/19 18:38 Urine Ascorbic Acid NEGATIVE (NEGATIVE) 07/14/19 18:38 Stool Occult Blood NEGATIVE (NEGATIVE) 07/15/19 18:17 POC Stool Occult Blood NEGATIVE (NEGATIVE) 07/14/19 19:03 Slides for Path Review PATHOLOGIST REVIEWED 07/14/19 18:52 Blood Type O POSITIVE 07/14/19 18:52 Blood Type Confirm O POSITIVE 07/14/19 19:30 Antibody Screen NEGATIVE 07/14/19 18:52 Crossmatch See Detail 07/14/19 18:52 07/14/19 18:52 Troponin I 0.025 Impressions: Chest X-Ray 07/14/19 17:32 IMPRESSION: 1. NO ACUTE RADIOGRAPHIC FINDING IN THE CHEST. Plan Time Spent: Greater than 30 Minutes Stroke Is this a Stroke Patient?: No Acute Heart Failure - Is this a Heart Failure Patient?: No
== END 2019-07-16 13:00 | disposition home or self-care (01) ==
LOC: ER 17:16 → EH 21:43 → 4N 23:05
PROVIDERS: ADMIT Emergency Medicine; ATTEND Family Medicine
DX: D50.9 Iron deficiency anemia, unspecified (principal); K21.0 Gastro-esophageal reflux disease with esophagitis; F10.21 Alcohol dependence, in remission; E87.1 Hypo-osmolality and hyponatremia; R73.9 Hyperglycemia, unspecified; R03.0 Elevated blood-pressure reading, without diagnosis of hypertension; R05 Cough; B90.9 Sequelae of respiratory and unspecified tuberculosis; R07.9 Chest pain, unspecified; R19.5 Other fecal abnormalities; E73.9 Lactose intolerance, unspecified; Z83.3 Family history of diabetes mellitus
CPT/HCPCS: 93005; 99285; 86900; 86901; 36415 ×3; 36430; 86850; 82607; 82728; 82746; 83540; 83550; 83735 ×2; 84443; 85025; 85027 ×2; 85610; 85730; 82270; 82272; 85045; 80048; 80053; 81001; 84484; 83036; 86920; 71045; 93010; P9016 ×2; J1644 ×2; Q0139; J0360; J3490 ×4; J7050; G0378

== ENCOUNTER 2020-03-22 07:55 | Outpatient (CLI) | payer SELFPAY ==
[~2020-03-22 07:55] MED LIST: FERUMOXYTOL (NON-ESRD) 510 MG/NS 100 ML IV PRN; NORMAL SALINE 250 ML IV PRN
[2020-03-22 08:18] VITALS: BP 163/69
== END 2020-03-22 09:35 | disposition home or self-care (01) ==
LOC: II 07:55 → 5TH 07:56 → II 09:35
PROVIDERS: ATTEND Internal Medicine
DX: D50.8 Other iron deficiency anemias (principal); K90.9 Intestinal malabsorption, unspecified
CPT/HCPCS: 96365; Q0138; J7050

== ENCOUNTER 2020-03-29 07:51 | Outpatient (CLI) | payer SELFPAY ==
[2020-03-29 08:58] VITALS: BP 186/76
== END 2020-03-29 08:45 | disposition home or self-care (01) ==
LOC: II 07:51 → 5TH 07:55 → II 08:45
PROVIDERS: ATTEND Internal Medicine
DX: D50.8 Other iron deficiency anemias (principal); K90.9 Intestinal malabsorption, unspecified
CPT/HCPCS: 96365; Q0138; J7050

== ENCOUNTER 2020-04-22 06:40 | Day surgery (SDC) | payer SELFPAY ==
[2020-04-22] MEDS ORDERED: PROPOFOL INJ 200 MG/20 ML VIAL IV ONE (06:48)
[2020-04-22 09:05] VITALS: BP 127/66
--- NOTE | 2020-04-22 09:38 | PDOC H&P ---
History of Present Illness Patient complains of: Is a 64-year-old male undergoing a colonoscopy by Dr. Lockett for an deficiency anemia. At the time of colonoscopy I was called into the operating room for findings seen on the right side of the colon consistent with a large near obstructing mass. Which was biopsied and tattooed by Dr. Lockett. Patient has been complaining of intermittent gas pain however he has been tolerating a regular diet he has been treated for an iron deficiency anemia. History of Present Illness: RACHANA WINN is a 64 year old male Past Medical History Cardiac Medical History: Reports: Hypertension Denies: Atrial Fibrillation, Coronary Artery Disease, DVT, Myocardial Infarction, Hyperlipidema, Pulmonary Embolism Pulmonary Medical History: Reports: Asthma Denies: Bronchitis, Chronic Obstructive Pulmonary Disease (COPD), Pneumonia Neurological Medical History: Denies: Seizures Endocrine Medical History: Denies: Diabetes Mellitus Type 1, Diabetes Mellitus Type 2, Hyperthyroidism, Hypothyroidism GI Medical History: Reports: Gastroesophageal Reflux Disease Denies: Cirrhosis, Crohn's Disease, Hepatitis, Ulcerative Colitis Musculoskeltal Medical History: Denies: Arthritis, Gout Skin Medical History: Denies: Eczema, Psoriasis Hematology: Reports: Anemia Denies: Bleeding Tendencies Past Surgical History Past Surgical History: Reports: Other - Operative repair of fractured jaw Social History Smoking Status: Never Smoker Frequency of Alcohol Use: None - History of heavy alcohol abuse in the past. No alcohol use for the last 8 months Hx Recreational Drug Use: No Drugs: None Hx Prescription Drug Abuse: No Family History Family History: DM - Older brother. denies: CAD, Hypertension, Malignancy Parental Family History Reviewed: No Children Family History Reviewed: NA Sibling(s) Family History Reviewed.: NA Medication/Allergy Home Medications: No Home Medications 04/19/20 Allergies/Adverse Reactions: lactose Allergy (Intermediate, Verified 07/14/19 20:25) Diarrhea Review of Systems Constitutional: PRESENT: fatigue Eyes: ABSENT: as per HPI, visual disturbances, other Ears: ABSENT: as per HPI, hearing changes, other Nose, Mouth, and Throat: ABSENT: as per HPI, headache(s), mouth pain, sore throat, vertigo, other Breasts: ABSENT: as per HPI, other Cardiovascular: ABSENT: as per HPI, chest pain, dyspnea on exertion, edema, orthropnea, palpitations, other Respiratory: ABSENT: as per HPI, cough, dyspnea, hemoptysis, sputum, other Genitourinary: ABSENT: as per HPI, difficulty urinating, dysuria, hematuria, nocturia, other Musculoskeletal: ABSENT: as per HPI, back pain, deformity, joint swelling, muscle weakness, other Integumentary: ABSENT: as per HPI, diaphoresis, erythema, lesions, pruritus, rash, wounds, other Neurological: ABSENT: as per HPI, abnormal gait, abnormal movements, abnormal speech, confusion, convulsions, dizziness, focal weakness, frequent falls, lack of coordination, memory loss, numbness, paresthesias, restless legs, syncope, tingling, tremor(s), vertigo, weakness, other Psychiatric: ABSENT: as per HPI, anxiety, depression, hallucinations, homidical ideation, suicidal ideation, other Endocrine: ABSENT: as per HPI, cold intolerance, flushing, heat intolerance, menstrual abnormalities, polydipsia, polyphagia, polyuria, other Hematologic/Lymphatic: PRESENT: other - Anemia Allergic/Immunologic: ABSENT: as per HPI, seasonal rhinorrhea, other Physical Exam Vital Signs: Temp Pulse Resp BP Pulse Ox 97.7 F 56 L 20 127/66 H 100 04/22/20 08:34 04/22/20 08:59 04/22/20 08:59 04/22/20 08:59 04/22/20 08:59 Intake & Output 04/21/20 04/22/20 04/23/20 06:59 06:59 06:59 Intake Total 100 Balance 100 Weight 72.57 kg General appearance: PRESENT: no acute distress Head exam: PRESENT: normocephalic Eye exam: PRESENT: EOMI Ear exam: PRESENT: normal external ear exam Mouth exam: PRESENT: moist Neck exam: PRESENT: full ROM Respiratory exam: PRESENT: clear to auscultation julianne Cardiovascular exam: PRESENT: RRR Breast: PRESENT: Normal GI/Abdominal exam: PRESENT: soft Rectal exam: PRESENT: deferred Extremities exam: PRESENT: full ROM Musculoskeletal exam: PRESENT: full ROM Neurological exam: PRESENT: alert, awake, oriented to person, oriented to place Psychiatric exam: PRESENT: appropriate affect Skin exam: PRESENT: dry Assessment & Plan - Time Anticipated Discharge Disposition: unk Anticipated Discharge Timeframe: unk - Plan Summary Plan Summary: Pression is probable right-sided colon cancer. Plan is for a chest x-ray CEA CBC CMP. Patient will be discharged home today and follow-up next week for elective laparoscopic right hemicolectomy. Explained the risk and benefits of the surgery which include bleeding infection injury to adjacent organs including the ureters the iliac vessels the small bowel and other intra-abdominal structures. He understands the possibly of leak after surgery missed lesions need for additional surgery need for open surgery. T this has been explained to his and the patient they understand and agree to proceed.
--- NOTE | 2020-04-22 11:02 | Operative Report ---
Operative Report DATE OF SURGERY: 04/22/20 Operative Report: The risk, benefits and alternatives of the procedure including the risk of bleeding, perforation requiring surgery have been explained to the patient in detail and informed consent has been obtained. Patient is taken back to the operating room and placed in left, lateral decubital position. Timeout was called. Propofol medication is administered. Rectal examination is done which did not reveal any masses, tears or fissures. An Olympus videoscope was introduced into the patient's rectum. The scope was then carefully advanced all the way to the hepatic flexure. Cecum was identified by the usual anatomical landmarks including the ileocecal valve as well as the appendiceal office. Photodocumentation is obtained. Scope was then sequentially pulled back via the distal segments of the colon retroflexion maneuver is performed. The risks benefits and alternatives of the procedure explained to the patient in detail and informed consent is obtained .A GIF Olympus video scope was inserted into the patient's mouth and hypopharynx, the esophagus is identified intubated and insufflated, the scope was then advanced through the esophagus stomach and duodenum retroflexion, maneuver is done the esophagus stomach and first and second portions of the duodenum examined PREOPERATIVE DIAGNOSIS: Blood in stool. Gastroesophageal reflux disease POSTOPERATIVE DIAGNOSIS: As apparent hepatic flexure mass status post biopsy. Not able to advance scope beyond the lesion. The area was tattooed with Jacinda ink via submucosal injection. Biopsies obtained. 3 other polyps were noted; one in the descending colon, and and another in the sigmoid as well as in the rectum all of which were removed via snare polypectomy and retrieved. Gastritis status post biopsy. Of note surgical consultation required Dr. Giles has seen the patient OPERATION: Colonoscopy with submucosal injection. Colonoscopy with snare polypectomy. Colonoscopy with biopsy. EGD with biopsy SURGEON: KAPIL GGANON ANESTHESIA: LMAC TISSUE REMOVED OR ALTERED: As noted above. COMPLICATIONS: None. ESTIMATED BLOOD LOSS: None. INTRAOPERATIVE FINDINGS: As noted above. PROCEDURE: Patient tolerated the procedure well. No immediate postprocedure complications are noted. Patient is discharged in good condition. Discharge date 04/22/2020. Discharge diet: Regular. Discharge activity: Regular. 2 to 3-week follow-up to discuss findings. Patient is instructed call the office or proceed to the emergency room should there be any further problems or questions. Wait on the pathology. We will need surgical resection.
== END 2020-04-22 09:30 | disposition home or self-care (01) ==
LOC: OROUT 06:40
PROVIDERS: ATTEND Internal Medicine Gastroenterology
DX: K29.50 Unspecified chronic gastritis without bleeding (principal); D12.7 Benign neoplasm of rectosigmoid junction; D12.4 Benign neoplasm of descending colon; D12.3 Benign neoplasm of transverse colon; D12.5 Benign neoplasm of sigmoid colon; D50.9 Iron deficiency anemia, unspecified; Z87.19 Personal history of other diseases of the digestive system; Z01.812 Encounter for preprocedural laboratory examination; Z20.822 Contact with and (suspected) exposure to COVID-19; F10.11 Alcohol abuse, in remission
CPT/HCPCS: 43239; 45380; 45385; 45381; 87635; 88342 ×2; 88305 ×2; 00813; J2704; C9803; 813